=== PATIENT | female | born 1995 | race Caucasian/White ===

== ENCOUNTER → 2019-05-22 17:07 | Outpatient (CLI) | payer OTHER, SELFPAY ==
[2019-05-22 18:16] LABS: Add Manual Diff / Slide Review NO; Basophils Absolute Auto 0 /uL (0-100); Basophils Percent Auto 0.3 % (0-2); Eosinophils Absolute Auto 100 /uL (0-450); Eosinophils Percent Auto 1.1 % (2-4); Glucose 81 mg/dL (70-100); Hematocrit 39.5 % (36-46); Lymphocytes Absolute Auto 3800 /uL (1100-4500); Lymphocytes Percent Auto 30.4 % (25-40); Mean Corpuscular HGB Conc 32.9 % (30-36); Mean Corpuscular Volume 88.1 fL (80-100); Monocytes Absolute Auto 1000 /uL (0-900); Monocytes Percent Auto 8.2 % (3-14); Neutrophils Absolute Auto 7600 /uL (1500-7000); Platelet Count 346 X10^3/uL (150-400); Red Blood Cell Count 4.49 X10^6/uL (4.0-5.2); Red Cell Distribution Width 14.2 % (11.6-14.8); White Blood Cell Count 12.6 X10^3/uL (4.5-11.0)
[2019-05-22 18:21] LABS: Appearance Urine UA CLEAR; Bilirubin Urine UA NEGATIVE (NEGATIVE); Color Urine UA YELLOW; Glucose Urine UA NEGATIVE (Negative); Ketones Urine UA NEGATIVE (NEGATIVE); Leukocyte Esterase Urine UA NEGATIVE (NEGATIVE); Nitrite Urine UA NEGATIVE (Negative); Occult Blood Urine UA NEGATIVE (Negative); Protein Urine UA NEGATIVE (Negative); Specific Gravity Urine UA >=1.030 (1.000-1.035); Urobilinogen Urine UA 0.2 E.U./dL (0.2)
[2019-05-22 18:23] LABS: Hemoglobin A1C% w Est Avg Glu 5.2 % (4.0-6.0)
[2019-05-22 18:49] LABS: Hepatitis B Surface Antigen NEGATIVE s/c (NEGATIVE); Rubella Antibody IgG 26.5 IU/mL (>15)
[2019-05-22 19:09] LABS: HIV 1 & 2 Ab/Ag 4th Gen Combo NEGATIVE (NEGATIVE); Hep C Virus Ab w/Reflex Quant NEGATIVE s/c (NEGATIVE)
[2019-05-24 14:18] LABS: RPR Screen Nonreactive (Nonreactive)
[2019-05-24 15:05] LABS: Varicella IgG Antibody < 135.00 Index (< 135.00)
[2019-05-24 15:08] LABS: HSV 2 IGG AB < 0.90 index (< 0.90); HSV1IGG < 0.90 index (< 0.90)
== END ==
DX: Z34.01 Encounter for supervision of normal first pregnancy, first trimester (principal); Z3A.08 8 weeks gestation of pregnancy
CPT/HCPCS: 36415; 80055; 81003; 82947; 83036; 86695; 86696; 86787; 86803; 87086; 87389

== ENCOUNTER 2019-10-26 18:11 | Observation (INO) | payer OTHER, SELFPAY ==
[2019-10-26 18:37] LABS: RBC Urine None Seen (0-5/HPF)
[2019-10-26 18:39] LABS: Appearance Urine UA CLEAR; Bilirubin Urine UA NEGATIVE (NEGATIVE); Color Urine UA YELLOW; Glucose Urine UA NEGATIVE (Negative); Ketones Urine UA NEGATIVE (NEGATIVE); Leukocyte Esterase Urine UA NEGATIVE (NEGATIVE); Nitrite Urine UA NEGATIVE (Negative); Occult Blood Urine UA NEGATIVE (Negative); Protein Urine UA NEGATIVE (Negative); Urobilinogen Urine UA 0.2 E.U./dL (0.2)
[2019-10-26 18:52] LABS: Bacteria Urine Moderate (10-30); Culture Indicated Urine Cult Not Indicated; Squamous Epithelial Cell Urine 5-10 /HPF (0-5/HPF); WBC Urine 1-5/HPF (0-5/HPF)
[2019-10-26] MEDS: LACTATED RINGERS 1,000 ML 1000 ML IV (20:53)
[2019-10-26] MEDS: NIFEdipine 10 MG CAPSULE PO ×4 (21:58→23:29)
[2019-10-26 22:45] LABS: Fetal Fibronectin Negative
[2019-10-27] MEDS: ACETAMINOPHEN 325 MG TABLET 650 MG PO ×2 (00:27→05:26)
[2019-10-27] MEDS: NITROFURANTOIN ER 100 MG CAPSULE PO (00:50)
--- NOTE | 2019-10-27 07:42 | DI.US.S_ITS ---
PROCEDURE: US OB LIMITED INDICATIONS: CERVICAL LENGTH OUTSIDE/PRIOR DATING DATA: Last menstrual period (LMP): 03/13/19. LMP-based estimated date of delivery (HALINA): 12/18/19. First dating scan (date and location): 05/22/19. Estimated date of delivery (HALINA) from first dating scan: 01/15/20. TECHNIQUE: Real-time scanning was performed of the fetus, with image documentation. Endovaginal scanning: None needed for this examination. COMPARISON: [facility], US, US OB >= 14 WEEKS FETUS, 09/08/2019, 10:20. [facility], US, US OB >= 14 WEEKS FETUS, 08/04/2019, 13:45. [facility], , US OB <= 14 WEEKS FETUS, 06/05/2019, 16:55. [facility], , US OB <= 14 WEEKS FETUS, 05/22/2019, 16:46. FINDINGS: A single living intrauterine gestation is present. Presentation: Vertex Placenta: Placental position is anterior fundal, without previa. Amniotic fluid index: 18.6 cm, normal range is 5-24 cm. heart rate: 145 beats per minute. Maternal cervical canal: 3.7 cm long. Normal lower limit is 2.5 cm. Estimated gestational age from initial scan: 28 weeks 4 days. IMPRESSION: Single living intrauterine gestation with normal amniotic fluid volume and maternal cervical length normal at this time. The delivery date is projected to be centered on 01/15/20. Dictated by: Guilherme Mehta M.D. on 10/27/2019 at 8:41 Approved by: Guilherme Mehta M.D. on 10/27/2019 at 8:45
--- NOTE | 2019-10-27 07:45 | PM.OBTRLD ---
Visit Information Visit Information Date of evaluation: 10/27/19 Primary OB Provider: Jl Arechiga On-call OB Provider: Khalida Steinberg Reason for Evaluation: Yes pre-term labor Vital Signs Vital Signs: Blood pressure 111/51, pulse of 82, PFSH Medical History (Updated 10/27/19 @ 07:55 by Khalida Steinberg MD) Abnormal Pap smear of cervix (Resolved) Anxiety (Resolved) Asthma (Resolved) Depression (Resolved) Irritable bowel syndrome (Chronic) Ovarian cyst (Chronic) Painful menstrual periods (Chronic) Shoulder pain (Resolved) Surgical History (Updated 06/04/19 @ 21:05 by Siria Anderson) Anesthesia (Resolved) History of adenoidectomy (Resolved) Family History (Updated 06/04/19 @ 21:07 by Siria Anderson) Father Hypertension Brother Tourette syndrome Sister Heroin addiction Mental health problem Grandmother Hypertension Stroke Social History Smoking Status: Never smoker Review of Systems Review of Systems Narrative: Patient had diarrhea yesterday which has not recurred since she arrived at the hospital. She is complaining lower back cramping pain. She denies any change in urination or burning with urination. No fevers. No leakage of fluid. No vaginal bleeding. Good movement. ROS Unobtainable: All systems reviewed & are unremarkable except as noted in HPI and below Exam Narrative Exam Narrative: HEENT exam within normal limits. Abdomen is soft, nontender. Intermittent heart tones 150s. Cervix feels long and closed and the head is not engaged. Extremities without edema and nontender. Objective Labs Labs: Laboratory Results - last 24 hr 10/26/19 10/26/19 18:25 22:07 Urine Color Yellow Urine Appearance Clear Urine pH 6.0 Ur Specific [place] 1.010 Urine Protein Negative Urine Glucose (UA) Negative Urine Ketones Negative Urine Occult Blood Negative Urine Nitrate Negative Urine Bilirubin Negative Urine Urobilinogen 0.2 Ur Leukocyte Esterase Negative Urine RBC None seen Urine WBC 1-5/hpf Ur Squamous Epith Cells 5-10 /hpf H Urine Bacteria Moderate (10-30) H Ur Culture Indicated? Cult not indicated Fibronectin Negative Evaluation Evaluation Baseline heart rate: 150 Contraction Frequency (minutes): 3 Uterine Contraction Intensity: Mild Cervical dilation (cm): 0 Cervical effacement (%): 0 station: -4 Laboratory results: Laboratory Tests 10/26/19 10/26/19 18:25 22:07 Urine Color Yellow Urine Appearance Clear Urine pH 6.0 Ur Specific [place] 1.010 Urine Protein Negative Urine Glucose (UA) Negative Urine Ketones Negative Urine Occult Blood Negative Urine Nitrate Negative Urine Bilirubin Negative Urine Urobilinogen 0.2 Ur Leukocyte Esterase Negative Urine RBC None seen Urine WBC 1-5/hpf Ur Squamous Epith Cells 5-10 /hpf H Urine Bacteria Moderate (10-30) H Ur Culture Indicated? Cult not indicated Fibronectin Negative Diagnosis, Plan/Disposition Final Diagnosis (1) 29 weeks gestation of : Current Visit: Yes Status: Acute (2) Premature uterine contractions causing threatened premature labor: Current Visit: Yes Status: Acute Plan/Disposition Plan: Patient is contractions did not respond to IV fluids, nifedipine and rest. Clean-catch urine was possibly contaminated so will get a cath specimen. fibronectin was negative. Will check cervix length on ultrasound. After discussion with Dr. Arechiga will start patient on indomethacin. Evaluate for discharge later today
[2019-10-27 08:37] LABS: Bacteria Urine None Seen; RBC Urine None Seen (0-5/HPF); WBC Urine None Seen (0-5/HPF)
[2019-10-27 08:44] LABS: Culture Indicated Urine Cult Not Indicated; Urine Comments Microscopic Normal
[2019-10-27] MEDS: INDOMETHACIN 25 MG CAPSULE 50 MG PO (08:57)
--- NOTE | 2019-10-27 09:39 | P.TNLD_ITS ---
Visit Information Visit Information Date of evaluation: 10/27/19 Primary OB Provider: Jl Arechiga On-call OB Provider: Jl Arechiga Reason for Evaluation: Yes pre-term labor Comments/Additional reasons for admission: Patient with persistent low back pain who lives on [facility] Medical History (Updated 10/27/19 @ 07:55 by Khalida Steinberg MD) Abnormal Pap smear of cervix (Resolved) Anxiety (Resolved) Asthma (Resolved) Depression (Resolved) Irritable bowel syndrome (Chronic) Ovarian cyst (Chronic) Painful menstrual periods (Chronic) Shoulder pain (Resolved) Surgical History (Updated 06/04/19 @ 21:05 by Siria Anderson) Anesthesia (Resolved) History of adenoidectomy (Resolved) Family History (Updated 06/04/19 @ 21:07 by Siria Anderson) Father Hypertension Brother Tourette syndrome Sister Heroin addiction Mental health problem Grandmother Hypertension Stroke Social History Smoking Status: Never smoker Exam Vital Signs (past 8 hours): Fundus measures 29 cm Vertex presentation. monitor showed occasional very small contractions. Patient was treated initially with IV fluid and nifedipine to know results. Indomethacin was added as well. Patient persisted in having low back pain Category one tracing Cervical length was obtained which was 3.7 cm. Objective Labs Labs: Laboratory Results - last 24 hr 10/26/19 10/26/19 10/27/19 18:25 22:07 08:15 Urine Color Yellow Urine Appearance Clear Urine pH 6.0 Ur Specific [place] 1.010 Urine Protein Negative Urine Glucose (UA) Negative Urine Ketones Negative Urine Occult Blood Negative Urine Nitrate Negative Urine Bilirubin Negative Urine Urobilinogen 0.2 Ur Leukocyte Esterase Negative Urine RBC None seen None seen Urine WBC 1-5/hpf None seen Ur Squamous Epith Cells 5-10 /hpf H Urine Bacteria Moderate (10-30) H None seen Ur Culture Indicated? Cult not indicated Cult not indicated Micro UA Comment Microscopic normal Fibronectin Negative Evaluation Evaluation Laboratory results: Laboratory Tests 10/26/19 10/26/19 10/27/19 18:25 22:07 08:15 Urine Color Yellow Urine Appearance Clear Urine pH 6.0 Ur Specific [place] 1.010 Urine Protein Negative Urine Glucose (UA) Negative Urine Ketones Negative Urine Occult Blood Negative Urine Nitrate Negative Urine Bilirubin Negative Urine Urobilinogen 0.2 Ur Leukocyte Esterase Negative Urine RBC None seen None seen Urine WBC 1-5/hpf None seen Ur Squamous Epith Cells 5-10 /hpf H Urine Bacteria Moderate (10-30) H None seen Ur Culture Indicated? Cult not indicated Cult not indicated Micro UA Comment Microscopic normal Fibronectin Negative Diagnosis, Plan/Disposition Final Diagnosis (1) 29 weeks gestation of : Current Visit: Yes Status: Acute (2) Premature uterine contractions causing threatened premature labor: Current Visit: Yes Status: Acute Plan/Disposition Plan: Discharge to mother's house on [place]. Patient has appointment with Dr. Osborne on Wednesday the 30 of October period OB Disposition: home
== END 2019-10-27 10:05 | disposition home or self-care (01) ==
PROVIDERS: Family Medicine; Admitting Provider Specialist; PCP Family Medicine; Visit Provider Specialist
DX: O47.00 False labor before 37 completed weeks of gestation, unspecified trimester (principal); Z3A.29 29 weeks gestation of pregnancy
CPT/HCPCS: 59025; 59050; 76815; 81001; 81015; 82731; 96360; G0378; G0379

== ENCOUNTER → 2019-10-30 08:58 | Outpatient (CLI) | payer OTHER, SELFPAY ==
[2019-10-30 11:00] LABS: Hematocrit 35.4 % (36-46); Hemoglobin 12.1 g/dL (12.0-16.0)
[2019-10-30 11:25] LABS: GTT (PREG) 1 Hour PP 50gm Dose 117 mg/dL (76-139)
== END ==
PROVIDERS: PCP Family Medicine
DX: Z34.02 Encounter for supervision of normal first pregnancy, second trimester (principal)
CPT/HCPCS: 82950; 85014; 85018; 86850

== ENCOUNTER 2019-11-23 19:33 | Outpatient (CLI) | payer OTHER, SELFPAY ==
--- NOTE | 2019-11-23 19:50 | DI.US.S_ITS ---
PROCEDURE: US OB LIMITED INDICATIONS: CERVICAL LENGTH ONLY OUTSIDE/PRIOR DATING DATA: Last menstrual period (LMP): 03/13/2019. LMP-based estimated date of delivery (HALINA): 12/18/2019. First dating scan (date and location): 05/22/2019. Estimated date of delivery (HALINA) from first dating scan: 01/15/2020. TECHNIQUE: Real-time scanning was performed of the fetus, with image documentation. Endovaginal scanning: Not performed COMPARISON: [facility], OB LIMITED, 10/27/2019, 8:14. FINDINGS: A single living intrauterine gestation is present. Presentation: Vertex. Placenta: Placental position is anterior fundal, without previa. Amniotic fluid index: 19.4 cm, normal range is 5-24 cm. heart rate: 149 beats per minute. Maternal cervical canal: 4.5 cm long. Normal lower limit is 2.5 cm. No funneling. Estimated gestational age from initial scan: 32 weeks 3 days. IMPRESSION: 1. Sanchez living intrauterine at 32 weeks 3/7 days based on prior ultrasound. 2. Normal placenta and amniotic fluid. 3. Cervix is normal in appearance, measuring 4.5 cm. Dictated by: Ari Ba M.D. on 11/23/2019 at 20:48 Approved by: Ari Ba M.D. on 11/23/2019 at 20:50
[2019-11-23 20:18] LABS: Appearance Urine UA CLEAR; Bilirubin Urine UA NEGATIVE (NEGATIVE); Color Urine UA YELLOW; Glucose Urine UA NEGATIVE (Negative); Ketones Urine UA TRACE (NEGATIVE); Leukocyte Esterase Urine UA NEGATIVE (NEGATIVE); Nitrite Urine UA NEGATIVE (Negative); Occult Blood Urine UA NEGATIVE (Negative); Protein Urine UA TRACE (Negative); Specific Gravity Urine UA 1.025 (1.000-1.035); Urobilinogen Urine UA 0.2 E.U./dL (0.2)
[2019-11-23 20:24] LABS: pH Urine UA 5.5 (4.5-8.0)
--- NOTE | 2019-11-23 20:36 | P.TNLD_ITS ---
Visit Information Visit Information Date of evaluation: 11/23/19 Primary OB Provider: Jl Arechiga On-call OB Provider: Sweta Coe Reason for Evaluation: Yes pre-term labor Comments/Additional reasons for admission: Patient called in complaining of contractions every 2 minutes for several hours. 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 She has not had leaking, bleeding or decreased movement. States she did not do anything in particular today, she was lying on the couch when the contractions started. Makes it a point to drink plenty of water. Vital Signs Vital Signs: Temperature 36.4? blood pressure 126/79 heart rate 100 PFSH Medical History (Updated 11/24/19 @ 07:25 by Sweta Coe DO) Abnormal Pap smear of cervix (Resolved) Anxiety (Resolved) Asthma (Resolved) Depression (Resolved) Irritable bowel syndrome (Chronic) Ovarian cyst (Chronic) Painful menstrual periods (Chronic) Shoulder pain (Resolved) Surgical History (Updated 06/04/19 @ 21:05 by Siria Anderson) Anesthesia (Resolved) History of adenoidectomy (Resolved) Family History (Updated 06/04/19 @ 21:07 by Siria Anderson) Father Hypertension Brother Tourette syndrome Sister Heroin addiction Mental health problem Grandmother Hypertension Stroke Social History Smoking Status: Never smoker Objective Labs Labs: Laboratory Results - last 24 hr 11/23/19 19:50 Urine Color Yellow Urine Appearance Clear Urine pH 5.5 Ur Specific [place] 1.025 Urine Protein Trace H Urine Glucose (UA) Negative Urine Ketones Trace H Urine Occult Blood Negative Urine Nitrate Negative Urine Bilirubin Negative Urine Urobilinogen 0.2 Ur Leukocyte Esterase Negative Evaluation Evaluation Baseline heart rate: 150 Variability: Moderate (11-25) monitor accelerations: Present monitor decelerations: Absent Category of Tracing: I Laboratory results: Laboratory Tests 11/23/19 19:50 Urine Color Yellow Urine Appearance Clear Urine pH 5.5 Ur Specific [place] 1.025 Urine Protein Trace H Urine Glucose (UA) Negative Urine Ketones Trace H Urine Occult Blood Negative Urine Nitrate Negative Urine Bilirubin Negative Urine Urobilinogen 0.2 Ur Leukocyte Esterase Negative Diagnosis, Plan/Disposition Final Diagnosis (1) 32 weeks gestation of : Current Visit: No Status: Acute (2) contractions: Current Visit: No Status: Acute Plan/Disposition Plan: Patient is a 24-year-old at 32 weeks and 4 days with contractions. Cervical length 4.7 cm on ultrasound which is quite reassuring. Urine was significant only for ketones. Patient was advised of the importance of drinking water. Contractions dissipated in the center and patient was sent home to follow-up as scheduled in clinic. OB Disposition: home
== END 2019-11-23 21:15 | disposition home or self-care (01) ==
LOC: OB 11-24 10:21
PROVIDERS: Family Medicine
DX: O47.03 False labor before 37 completed weeks of gestation, third trimester (principal); Z3A.32 32 weeks gestation of pregnancy
CPT/HCPCS: 59025; 76815; 76817; 81003; G0378; G0379

== ENCOUNTER → 2019-12-11 09:42 | Outpatient (CLI) | payer OTHER, SELFPAY ==
[2019-12-12 09:01] LABS: Strep Grp B PCR NEG for Grp B Strep
== END ==
DX: Z34.03 Encounter for supervision of normal first pregnancy, third trimester (principal); Z3A.35 35 weeks gestation of pregnancy
CPT/HCPCS: 87653

== ENCOUNTER 2020-01-06 07:30 | Inpatient (IN) | payer OTHER, SELFPAY ==
[2020-01-06 08:41] VITALS: BP 126/60
--- NOTE | 2020-01-06 09:47 | PM.OBHP.1 ---
OB HPI Date/Time Date of admission: 01/06/20 Date Patient Seen: 01/06/20 Time Patient Seen: 09:15 History of Present Condition Chief complaint: : 1 Para: 0 Estimated Date of Delivery: 01/14/20 Estimated Gestational Age (weeks): 38w6d Narrative: Sumi Cárdenas is a 24 year old with HALINA of 01/14/20 putting her at 38 weeks and 6 days gestation. Spontaneous rupture of membranes occurred last night at approximately 11:15 p.m. with clear fluid. Patient wished to labor at home so came in just before 8:00 a.m. this morning. She reports contractions that she rates as 5/10 as well as continued leaking. Denies vaginal bleeding or decreased movement. has been uncomplicated with the exception of obesity and anxiety and depression for which she took sertraline. She is Rh negative and received RhoGAM this . Normal labs and ultrasounds. She was seen in triage a couple times for contractions and sent home with reassurance. Of note, her 's brother was born with trisomy 18 and stillborn. Patient's brother has Tourette's and uncle has cerebral palsy. Patient has a cousin with webbed toes. History of Present care: good care, initiated at week # (9), number of visits (12) and pounds weight gain (20) Dating criteria: based on 1st trimester US only Ultrasounds: normal mid trimester US Obstetrical complications: none Medical complications: none Preadmission Labs Blood type: 0 (-) negative -: Antibody screen: negative, GBS status: negative, HBsAG: negative, HIV: negative, HSV 1: negative, HSV 2: negative and RPR/VDLR: negative -: Chlamydia screen: not detected and Gonorrhea screen: not detected -: Rubella: immune and Varicella: not immune HCT: 40.6 HCAB: negative PAP: Normal Urine: Negative 1 hr GTT: 117 Evaluation Evaluation Baseline heart rate: 140 Variability: Moderate (11-25) monitor accelerations: Present monitor decelerations: Absent Uterine Contraction Intensity: Mild Cervical dilation (cm): 2 Cervical effacement (%): 100 station: -1 Non-invasive Membranes Rupture Test: positive (Thin meconium stained fluid) [facility] Medical History (Updated 01/01/20 @ 10:05 by Jl Arechiga MD) Abnormal Pap smear of cervix (Resolved) Anxiety (Resolved) Asthma (Resolved) Depression (Resolved) Irritable bowel syndrome (Chronic) Ovarian cyst (Chronic) Painful menstrual periods (Chronic) Shoulder pain (Resolved) Surgical History (Updated 06/04/19 @ 21:05 by Siria Anderson) Anesthesia (Resolved) History of adenoidectomy (Resolved) Family History (Updated 06/04/19 @ 21:07 by Siria Anderson) Father Hypertension Brother Tourette syndrome Sister Heroin addiction Mental health problem Grandmother Hypertension Stroke Social History Smoking Status: Never smoker Meds Home Medications and Allergies Home Medications Medication Instructions Recorded Confirmed Type docosahexaenoic acid 200 mg capsule mg PO cap 05/19/19 History prenat.vits,lan,fip-zowa-bdzlf 1 tab PO DAILY 05/19/19 History sertraline 100 mg tablet 100 mg PO DAILY #30 tab 11/20/19 Rx Double Electric Breast Pump 1 each TOP .prn #1 each 01/01/20 01/01/20 Rx Allergies Allergy/AdvReac Type Severity Reaction Status Date / Time No Known Drug Allergies Allergy Verified 05/22/19 16:21 Exam Vital Signs (past 8 hours): - 01/06/20 08:41 Blood Pressure 126/60 Temperature 36.8? Blood pressure 126/60 Pulse 82 Const General: healthy appearing and comfortable Nutritional Appearance: obese HENMT Head: normal to inspection Ears: hearing grossly normal bilaterally Nose: external nose normal Face and sinus: normal facial exam Mouth: oral mucosae normal Eyes General: appearance normal, both eyes and all related structures Neck Neck: normal visual inspection Resp Effort & Inspection: normal respiratory effort Auscultation: clear to auscultation bilaterally Cardio Rate: regular rate Rhythm: regular rhythm Heart Sounds: no murmurs GI Other: Gravid External Female Exam: external appearance normal Manual OB Exam: dilated 2, effaced fully and station -1 Presentation: vertex Estimated Weight (lbs): 8 Amniotic Fluid: meconium (Thin) Back/Spine/Pelvis Back: normal to inspection Skin General: no rashes or lesions noted Extrem General: normal to inspection and no pedal edema Objective Labs Result Diagrams: 01/06/20 09:45 Assessment and Plan Assessment and Plan Assessment and Plan narrative: Patient is a 24-year-old at 38+6 weeks gestation with SROM at approximately 11:15 a.m. last night with reportedly clear fluid. She came in this morning with contractions and continued leaking of fluid though not in active labor. Fluid appears to have light meconium. She is GBS negative and afebrile. Plan Start Pitocin per protocol Patient desires natural childbirth but is open to options for pain management should she change her mind Anticipate vaginal delivery
[2020-01-06] MEDS: LACTATED RINGERS 1,000 ML 100 ML IV ×2 (09:50→20:27)
[2020-01-06] MEDS: OXYTOCIN PREMIX 30 UNIT/500 ML PLAST..BAG IV (10:02)
[2020-01-06 10:08] LABS: Add Manual Diff / Slide Review NO; Basophils Absolute Auto 100 /uL (0-100); Basophils Percent Auto 0.6 % (0-2); Eosinophils Absolute Auto 0 /uL (0-450); Eosinophils Percent Auto 0.2 % (2-4); Hematocrit 35.9 % (36-46); Hemoglobin 12.1 g/dL (12.0-16.0); Lymphocytes Absolute Auto 2600 /uL (1100-4500); Lymphocytes Percent Auto 16.8 % (25-40); Mean Corpuscular HGB Conc 33.8 % (30-36); Mean Corpuscular Hemoglobin 29.5 PG (26-34); Mean Corpuscular Volume 87.1 fL (80-100); Monocytes Absolute Auto 1400 /uL (0-900); Monocytes Percent Auto 9.2 % (3-14); Neutrophils Absolute Auto 11400 /uL (1500-7000); Neutrophils Percent Auto 73.2 % (50-75); Platelet Count 306 X10^3/uL (150-400); Red Blood Cell Count 4.12 X10^6/uL (4.0-5.2); Red Cell Distribution Width 14.1 % (11.6-14.8); White Blood Cell Count 15.5 X10^3/uL (4.5-11.0)
--- NOTE | 2020-01-06 15:40 | PM.OBPNLAB ---
Date/Time Date Patient Seen: 01/06/20 Time Patient Seen: 15:30 Pain Control Pain control: tolerating well and epidural Pelvic Exam Dilation (cm): 4 Effacement (%): 100 station: -1 Amniotic membrane status: Ruptured Contractions Pitocin rate (mU/min): 6 Contraction frequency (min): 5 Contraction pattern: Regular Status status: Category l Heart Rate Baseline: 130 Monitor Accelerations: Present Monitor Decelerations: Absent Monitor Variability: Moderate Assessment and Plan Assessment: active labor Plan: continuous present management Comments: Pitocin had been turned off prior to epidural due to difficulty monitoring baby. Monitor is adequate now and FHT category 1. Continue to titrate pitocin to contractions every 2-3 minutes.
--- NOTE | 2020-01-06 17:19 | PM.OBPNLAB ---
Date/Time Date Patient Seen: 01/06/20 Time Patient Seen: 17:10 Pain Control Pain control: tolerating well and epidural Pelvic Exam Dilation (cm): 7 Effacement (%): 100 station: -1 Amniotic membrane status: Ruptured Contractions Pitocin rate (mU/min): 7 Contraction frequency (min): 5 Contraction pattern: Regular Status status: Category ll Monitor Accelerations: Present Monitor Decelerations: Prolonged Assessment and Plan Assessment: active labor Plan: continuous present management Comments: I was called due to a prolonged deceleration down to the 60s after a period of multiple contractions in a row. Pitocin was cut in half. heart tones recovered after position change back to baseline. SVE now 7/100/-1. Patient has made significant change in 1.5 hours. There has been difficulty monitoring baby intermittently but currently monitoring is adequate. If we have any further difficulty monitoring, will apply FSE.
--- NOTE | 2020-01-06 19:58 | PM.OBPNLAB ---
Date/Time Date Patient Seen: 01/06/20 Time Patient Seen: 18:50 Pain Control Pain control: tolerating well and epidural Pelvic Exam Dilation (cm): 9 Effacement (%): 100 station: -1 Amniotic membrane status: Ruptured Contractions Pitocin rate (mU/min): 7 Contraction frequency (min): 3 Contraction pattern: Regular Status status: Category ll Heart Rate Baseline: 120 Monitor Accelerations: Present Monitor Decelerations: Prolonged Monitor Variability: Moderate Assessment and Plan Assessment: active labor Plan: continuous present management Comments: Patient was having recurrent early decelerations so SVE performed. After SVE there was a prolonged deceleration to the 60s. Heart tones were under 100 for approximately 8 minutes. There was some question as to whether the FSE was working properly so it was removed. Dr. Arechiga was called at that time in case of possible need for a . By the time he arrived to the center FHT were back up to baseline. On exam patient had a lip of cervix on the right side. Pitocin was restarted. Patient was rechecked and found to be complete. Baby tolerated a trial push so Dr. Arechiga left as there was no indication for intervention. Patient's epidural remains quite dense. FHT are now category 1 so will have her labor down for 30 min then re-evaluate for rectal pressure or an urge to push.
--- NOTE | 2020-01-06 21:33 | PM.OBPRVD ---
Labor & Delivery Delivery date: 01/06/20 Delivery augmentation: pitocin Delivery monitor: external FHT and internal FHT Route of delivery: L&D Laceration Description: Perineal - 2nd Degree Delivery repair: chromic Estimated blood loss (mL): 250 Anesthesia type: Epidural Narrative: 24-year-old at 38 weeks and 6 days gestation who gave via spontaneous vaginal delivery on 01/06/20 at 21:05. STAGE I: Labor Patient presented to the center morning of 01/06/20 with spontaneous rupture of membranes which occurred at 11:15 p.m. on 01/05/20. Fluid had thin meconium staining. She was not yet in active labor so was started on Pitocin per protocol due to rupture of membranes. She progressed well and received an epidural with adequate pain control. An FSE was placed due to difficulty monitoring with both the external and wireless monitors. There was an episode during stage I with a prolonged decelerations however good recovery. FSE had dislodged and was removed. The external monitor was replaced and working well. Remainder of stage I was uneventful. STAGE II: Delivery Patient was complete at 19:40 however her epidural was quite dense. heart tones were category 1 so she was allowed to labor down. Patient began pushing at 8:35 p.m.. Spontaneous vaginal delivery occurred at 9:05 p.m.. Infant was vertex and ROBE. A loose nuchal cord x1 was reduced. Infant delivered easily over an intact perineum and was immediately placed on mother's abdomen. Cord was clamped and cut after 1 minute delay. Apgars were 8 and 9. No resuscitation of the required beyond drying and stimulating. Highest maternal temperature during stage II was 37.8? C, 100? F. There was no tachycardia or foul-smelling amniotic fluid to suggest chorioamnionitis. STAGE III: Placenta/Cord Placenta delivered spontaneously at 7:10 p.m. after active management and appeared intact with a three-vessel cord. A second-degree perineal laceration was repaired in the usual fashion with 3-0 Vicryl. Hemostasis assured. EBL: 250 mL. Needle and sponge counts were correct. The vagina was inspected and no items were left in situ. Patient was doing well with her [place] and has been at bedside. Prue Baby 1: gender: Male Presentation: vertex Placenta delivery description: Spontaneous cord vessel description: 3 Vessels score (1 min): 8 score (5 min): 9
[2020-01-07] MEDS: LANOLIN OINT 7 GM 1 APPLIC TOP ×2 (05:20→08:35)
[2020-01-07] MEDS: DERMOPLAST SPRAY 20% 60 ML 1 SPRAY TOP (05:21)
[2020-01-07] MEDS: SERTRALINE 50 MG TABLET 100 MG PO (08:35)
[2020-01-07] MEDS: DOCUSATE 100 MG CAPSULE PO (08:35)
[2020-01-07] MEDS: PRENATAL VIT,CALC/IRON/FOLIC 1 TABLET 1 TAB PO (08:35)
[2020-01-07] MEDS: IBUPROFEN 600 MG TABLET PO ×2 (08:35→14:02)
--- NOTE | 2020-01-07 10:37 | PM.OBDS.1 ---
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 Patient presented with rupture of membranes without active labor so was started on Pitocin. She received an epidural with excellent pain control. Labor was complicated by a prolonged deceleration for several minutes however good recovery. Patient went on to deliver a vigorous male infant. No complications after delivery. A second-degree perineal laceration was repaired in the usual fashion. Patient had escalating temperatures during labor, the highest was 37.8 right before delivery. There was no tachycardia or foul-smelling amniotic fluid to suggest chorioamnionitis. Temperature came down after delivery as expected. course uncomplicated. Patient was ambulating, voiding and passing flatus. Pain controlled with ibuprofen and vaginal bleeding moderate. She was eager to return back to her in-laws home with her and baby prior to eventually returning home to [facility]. Peripartum Data Infant Delivery Method: Natural Vaginal Laceration description: Perineal - 2nd Degree complications: none 1: Gender: Male Disposition of : home Discharge Diagnosis (1) 38 weeks gestation of : Status: Acute (2) Spontaneous vaginal delivery: Status: Acute Status at Discharge Cognitive/behavioral status at discharge: at baseline, oriented Functional status at discharge: independent ambulation Overall status at discharge: patient is progressing back to baseline Time Spent with Patient Time attestation: Total time spent providing and/or coordinating discharge services: Time spent: Less than 30 minutes Objective Labs Result Diagrams: 01/06/20 09:45 Labs: Laboratory Results - last 24 hr 01/06/20 09:45 Blood Type O Negative Antibody Screen Negative Exam Vital Signs (past 8 hours): Temperature 98.0? blood pressure 122/76 heart rate 101 respirations 18 Narrative Exam Narrative: General: Awake and alert, no acute distress. HEENT: NCAT, EOMI, moist oral mucosa CV: Regular rate and rhythm, no murmurs, rubs or gallops Lungs: CTAB, no wheezes, rales, or rhonchi Abdomen: Soft, nontender; bowel tones active; uterus firm 1 cm below umbilicus Extremities: Warm, no edema, 2+ pedal pulses bilaterally Discharge Plan Discharge Plan Patient Disposition: Home Discharge comment: Call for fevers, severe pain or bleeding through more than a pad an hour Discharge orders & Medications Prescriptions: New docusate sodium [DOK] 100 mg Capsule 100 mg PO DAILY Qty: 30 RF: 0 ibuprofen 600 mg Tablet 600 mg PO Q6HR PRN (Reason: Pain, Mild (1-3)) Qty: 30 RF: 0 Continued prenat.vits,lan,tgk-exma-ccriy tablet 1 tab PO DAILY RF: 0 Algal [place]-3 DHA 200 mg capsule PO RF: 0 sertraline 100 mg tablet 100 mg PO DAILY Qty: 30 RF: 3 Double Electric Breast Pump 1 each TOP .prn Qty: 1 RF: 0 Visit Report/Discharge Packet Visit Report Forms: Patient Portal/API, Stroke Signs & Symptoms Discharge Data Attending Provider: Sweta Coe Admit Date/Time: 01/06/20 07:30
[2020-01-07 17:48] VITALS: BP 126/60; PULSE 101; RESP 18; TEMP 36.9
== END 2020-01-07 19:14 | disposition home or self-care (01) | DRG 807 ==
PROVIDERS: Admitting Provider Family Medicine; Visit Provider Family Medicine
DX: O42.02 Full-term premature rupture of membranes, onset of labor within 24 hours of rupture (principal); Z37.0 Single live birth; Z3A.38 38 weeks gestation of pregnancy; O77.0 Labor and delivery complicated by meconium in amniotic fluid; O70.1 Second degree perineal laceration during delivery; E66.9 Obesity, unspecified; F41.9 Anxiety disorder, unspecified; F32.9 Major depressive disorder, single episode, unspecified
CPT/HCPCS: 01967; 59050; 59400; 59409; 85025; 86850; 86900; 86901; G0378; G0379; J2590

== ENCOUNTER → 2025-01-15 09:18 | Outpatient (CLI) | payer SELFPAY ==
[2025-01-15 18:58] LABS: Add Manual Diff / Slide Review NO; Basophils Absolute Auto 0 /uL (0-100); Basophils Percent Auto 0.4 % (0-2); Eosinophils Absolute Auto 100 /uL (0-450); Eosinophils Percent Auto 1.1 % (2-4); Hematocrit 38.6 % (36-46); Hemoglobin 12.9 g/dL (12.0-16.0); Lymphocytes Absolute Auto 1700 /uL (1100-4500); Lymphocytes Percent Auto 18.8 % (25-40); Mean Corpuscular HGB Conc 33.5 % (30-36); Mean Corpuscular Volume 86.4 fL (80-100); Monocytes Absolute Auto 900 /uL (0-900); Monocytes Percent Auto 9.7 % (3-14); Neutrophils Absolute Auto 6200 /uL (1500-7000); Platelet Count 301 X10^3/uL (150-400); Red Blood Cell Count 4.47 X10^6/uL (4.0-5.2); Red Cell Distribution Width 14.2 % (11.6-14.8); White Blood Cell Count 8.9 X10^3/uL (4.5-11.0)
[2025-01-15 19:03] LABS: Alanine Aminotransferase 23 IU/L (<35); Albumin 4.1 g/dL (3.5-5.0); Albumin Globulin Ratio 1.2 (1.0-2.8); Alkaline Phosphatase 81 U/L (38-126); Aspartate Aminotransferase 57 IU/L (14-36); BUN Creatinine Ratio 21.3 (6-22); Bilirubin Total 0.6 mg/dL (0.2-1.3); Blood Urea Nitrogen 17 mg/dL (7-17); Calcium 9.1 mg/dL (8.4-10.2); Carbon Dioxide 28 mmol/L (22-32); Chloride 104 mmol/L (98-107); Cholesterol 172 mg/dL (140-199); Estimated Glomerular Filt Rate > 60 mL/min (>60); Globulin 3.3 g/dL (1.7-4.1); Glucose 101 mg/dL (70-100); HDL Cholesterol 42 mg/dL (40-60); HEMOLYSIS 18 (0-50); LDL Cholesterol Calculated 120 mg/dL (<100); Potassium 4.1 mmol/L (3.4-5.1); Sodium 138 mmol/L (137-145); Total Protein 7.4 g/dL (6.3-8.2); Triglycerides 51 mg/dL (35-150)
[2025-01-15 19:16] LABS: Vitamin D 25 Hydroxy (D3) 70.2 ng/mL (30.0-100.0)
[2025-01-15 19:18] LABS: Hemoglobin A1C% w Est Avg Glu 5.2 % (4.0-6.0)
[2025-01-15 19:45] LABS: TSH w/ Reflex to FT4 1.62 uIU/mL (0.47-4.68)
[2025-01-15 20:04] LABS: Vitamin B12 240 pg/mL (239-931)
== END ==
PROVIDERS: PCP Naturopath; Visit Provider Nurse Practitioner Adult Health
DX: Z01.419 Encounter for gynecological examination (general) (routine) without abnormal findings (principal); R53.83 Other fatigue
CPT/HCPCS: 80053; 80061; 82306; 82607; 83036; 84443; 85025